=== PATIENT | male | born 1935 | race Caucasian/White ===

== ENCOUNTER 2017-04-03 10:06 | Emergency (ER) | payer MEDICARE, BC ==
[2017-04-03 10:21] VITALS: BP 170/96
[2017-04-03] MEDS ORDERED: DIPHTH,PERTUSS(ACELL),TET VAC 0.5 ML VIAL IM ONE ×2 (10:22→10:31)
--- OUTSIDE RECORDS SUMMARY | 2017-04-03 11:15 | XMS REPORT | Continuity of Care Document ---
:1935 Author Organization [facility] ([facility]) Address [address] [place] [address] Phone [phone] Care Team Providers Name Role Phone Peter Barreto Primary Care Provider [phone] Source Comments This disclosure is being made pursuant to the Care Everywhere program, applicable federal and state laws, and may not contain all informaitonavailable regarding this patient.[facility] ([facility]) Active Allergies and Adverse Reactions No Known Allergies Current Medications Prescription Sig. Disp. Refills Start Date End Date Status nitroglycerin place 0.4 mg Active (NITROSTAT) 0.4 mg SL under the tongue tablet every 5 minutes as needed. folic acid 400 mcg take 1 Tab by Active tablet mouth daily. rabeprazole (ACIPHEX) 20 Take 1 Tab by Active mg EC tablet mouth daily levothyroxine Take 150 mcg by Active (SYNTHROID) 150 mcg mouth every tablet morning before breakfast. METFORMIN 500 mg tablet Take 1,000 mg by 03/31/2014 Active mouth 2 times daily. sildenafil (VIAGRA) 100 Take 100 mg by Active mg tablet mouth as needed. Take 1 hour prior to sexual activity. ergocalciferol (VITAMIN Take 50,000 Active D2) 50,000 unit capsule Units by mouth 2 times weekly ciprofloxacin-dexamethas Instill 3 Drops 7.5 mL 11 08/18/2015 Active one (CIPRODEX) 0.3-0.1 % into both ears 2 otic suspension times daily atenolol 25 mg tablet Take 1 tablet 90 tablet 4 05/03/2016 Active (25 mg total) by mouth daily. enalapril 20 mg tablet Take 1 tablet 90 tablet 4 05/03/2016 Active (20 mg total) by mouth daily. olmesartan (BENICAR) 40 Take 1 tablet 90 tablet 4 05/03/2016 Active mg tablet (40 mg total) by mouth daily. rosuvastatin (CRESTOR) Take 1 tablet 90 tablet 4 05/03/2016 Active 20 mg tablet (20 mg total) by mouth every evening. aspirin 81 mg EC tablet Take 1 tablet 90 tablet 4 05/03/2016 Active (81 mg total) by mouth daily. felodipine 10 mg XR Take 1 tablet 90 tablet 4 01/27/2017 Active tablet (10 mg total) by mouth daily. Active Problems Problem Noted Date Otorrhea of both ears 08/18/2015 Mixed hearing loss, bilateral 08/18/2015 HTN (hypertension) 11/20/2012 Mixed hyperlipidemia 11/20/2012 Other specified acquired hypothyroidism 11/20/2012 CAD (coronary artery disease) 09/21/2009 Other ill-defined heart disease 11/19/2007 Nonspecific (abnormal) findings on radiological and other examination of 11/19 other intrathoracic organs Other chest pain 05/26/2007 Shortness of breath 05/23/2007 Most Recent Encounters Date Type Specialty Providers Description 01/26/2017 Refill [facility] and Vascular Laya Mobley RN Dx: Essential hypertension (Primary Dx) Immunizations Name Dates Previously Given Next Due Influenza, PF 09/22/2009 Social History Tobacco Use Types Packs/Day Years Used Date Never Smoker Smokeless Tobacco: Never Used Alcohol Use Drinks/Week oz/Week Comments Yes 2 Standard drinks or equivalent Last Filed Vital Signs Vital Sign Reading Time Taken Blood Pressure 153/74 05/03/2016 8:15 AM CDT Pulse 74 05/03/2016 8:15 AM CDT Temperature 36.6 C (97.9 F) 09/30/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 Respiratory Rate 20 06/02/2007 8:00 AM CDT Height 1.727 m (5' 8") 04/08/2014 7:58 AM CDT Weight 94.1 kg (207 lb 7.3 oz) 05/03/2016 8:15 AM CDT Body Mass Index 31.55 05/03/2016 8:15 AM CDT Oxygen Saturation 94% 04/08/2014 7:58 AM CDT Plan of Care Date Type Specialty Providers Description 06/20/2017 Appointment Heart and Vascular Clinton Zimmer MD Subj: Appointment [address] [place] [address] [phone] (Fax) Health Maintenance Due Date Last Done Comments Hepatitis B Vaccine (1 of 3 1935 - Primary Series) Tdap Vaccine 1945 Td Vaccine 1952 Colonoscopy 05/21/1984 Zoster Vaccine 1994 Pneumococcal Vaccine (1 of 1999 2 - PCV13) Lipid Disorder Screening 11/20/2017 11/20/2012, 05/29/2007, 05/28/2007 Influenza Vaccine: Seasonal Addressed 08/08/2016 (Completed Overridden with the outside this hospital intention of not or clinic), 07/28/2015 completing the topic (Previously completed), 09/22/2009 Results from Last 3 Months Not on file
--- NOTE | 2017-04-03 11:47 | ERNOTE ---
Animal Bite ER Date of Service: 04/03/17 Presenting Symptoms: bitten Time Seen by Provider: 04/03/17 10:57 Source: patient Exam Limitations: no limitations Immunizations: IMMUNIZATION HX Immunizations Up to Date Yes History of Influenza Vaccine Yes Hx Pneumococcal Vaccination Yes Allergies/Adverse Reactions: Allergies No Known Allergies Allergy (Unverified 03/31/15 13:05) Home Medications: HOME MEDICATIONS Aspirin 325 mg PO DAILY 04/02/15 [Last Taken Unknown] Atenolol [Tenormin] 25 mg PO DAILY 04/02/15 [Last Taken Unknown] Clotrimazole [Lotrimin Cream] 1 appl TP BID 04/02/15 [Last Taken Unknown] Enalapril Maleate [Vasotec] 20 mg PO DAILY 04/02/15 [Last Taken Unknown] Felodipine [Felodipine ER] 10 mg PO DAILY 04/02/15 [Last Taken Unknown] Folic Acid 0.4 mg PO DAILY 04/02/15 [Last Taken Unknown] Levothyroxine Sodium [Unithroid] 150 mcg PO BID 04/02/15 [Last Taken Unknown] Olmesartan Medoxomil [Benicar] 20 mg PO DAILY 04/02/15 [Last Taken Unknown] Rabeprazole Sodium [Aciphex] 20 mg PO BID 04/02/15 [Last Taken Unknown] Rosuvastatin Calcium [Crestor] 20 mg PO DAILY 04/02/15 [Last Taken Unknown] Sildenafil Citrate [Viagra] 100 mg PO DAILY PRN 04/02/15 [Last Taken Unknown] metFORMIN HCL [Glucophage Xr] 500 mg PO DAILY 04/02/15 [Last Taken Unknown] Amox Tr/Potassium Clavulanate [Augmentin 875-125 Tablet] 875 mg PO Q12H #20 tab 04/03/17 [Last Taken Unknown] Narrative: Patient presents to the ED with a bite to his finger from a cat. 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 Right handed. Right 3rd digit. He has his rabies vaccine and I had nursing notify animal control. Right 3rd finger. dT updated. Denies other injuries of N/T/W. 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: Reports: work Animal Type: Reports: cat Animal's Immunization Status: Reports: unknown Observation/Capture: Reports: animal known Context of Attack: Reports: other - vet Severity of injury: Reports: bitten Location of Injury: Reports: upper extremity (R) Associated symptoms: Denies: numbness distally, pain on movement, tingling Prior Treatment: Denies: recently seen Review of Systems - Review of Systems Constitutional: Absent: fever Neurological: Absent: weakness - Patient's Past Medical History Patient History - Medical: Diabetes Type 2, Hypothyroidism Patient History - Cardiac/Respiratory: Hypertension, Hyperlipidemia Patient History - Cancer: No Hx of Cancer Patient History - Surgical Procedures: Cardiac stent Patient History - Other: None - Family History Mother Family History - Medical: Family History - Cardiac/Respiratory: No pertinent hx Father Family History - Medical: Family History - Cardiac/Respiratory: No pertinent hx - Social History Living Situations: spouse Abuse History: No History of abuse Psych History: No pertinent hx Smoking Status: Never smoker Alcohol Use: occasionally Drug Use: none - Immunizations Immunizations Up to Date: Yes Hx Pneumococcal Vaccination: Yes History of Influenza Vaccine: Yes Physical Exam - Physical Exam General Appearance: Present: alert, no apparent distress Respiratory: Present: no respiratory distress Extremity Exam: Present: other - 3.5cm laceration right 3dr finger. no FB seen. no tendon injury noted. Extension strength and flexion appear to be intact. No joint or bone involvement. No FB seen. Gaping. Neurological Exam: Present: other - sensation in fenger intact. Motor appears to be intact. Brisk capillary refill. Skin Exam: Absent: other - laceration as noted. ED Progress - Vital Signs Patient's Vital Signs:: I have reviewed the patient's vital signs. Vital Signs: Vital Signs 04/03/17 10:17 Temperature 36.8 C Pulse Rate 73 Respiratory 22 H Rate Blood Pressure 170/96 O2 Sat by Pulse 96 Oximetry - Progress/Reassessment Chief Complaint: Animal Bite Progress Note-Subjective: 04/03/17 11:44 he wanted the wound colsed. I felt uncomfortable with this as it is a bite and felt delayed secondary closure indicated. He was not agreeable to this. He understands risks and benefits. I discussed the case with Dr Palomo who saw the patient inthe ED and felt I could close it with ABX and he would see the patient in the office in 7 days for a re-check. patient understnds I felt delayed secondary closure best. Procedures Right 3rd Digit Anesthesia: 1% Lidocaine I & D Prep: sterile drapes applied, sterile dressing applied Length of Repair/Wound (cm): 3.5 Wound's Depth/Shape: into subcutaneous Wound Explored: clean, no foreign body Wound Intervention: irrigated w/saline Foreign body identified: other - none Distal NVT: neuro/vasc intact, no tendon injury Suture Size/Type: 4-0, nylon Number of Sutures: 6 Layer Closure: Simple Estimated blood loss (ml): 0 Wound Dressing: sterile dressing applied Complications: Pt estee procedure well Departure Clinical Impression: Animal bite - Departure Disposition: Home self-care Condition: Stable Instructions: Animal Bite Additional Instructions: Rest. Antibiotics. Dr Palomo will see you again in the office April 10 at 9: 30 am. Return immediately if you see any signs of infection, develop fever, numbness, tingling, weakness or if your condition worsens or changes in any way. Prescriptions: Amox Tr/Potassium Clavulanate [Augmentin 875-125 Tablet] 875 mg PO Q12H #20 tab
== END 2017-04-03 11:42 | disposition home or self-care (01) ==
LOC: ER 10:06
PROC: 0JQJ0ZZ Repair Right Hand Subcutaneous Tissue and Fascia, Open Approach (ICD-10-PCS; principal; 2017-04-03)
DX: S61.252A Open bite of right middle finger without damage to nail, initial encounter (principal); W55.01XA Bitten by cat, initial encounter; Y93.89 Activity, other specified; Y92.59 Other trade areas as the place of occurrence of the external cause; Y99.0 Civilian activity done for income or pay; Z23 Encounter for immunization

== ENCOUNTER 2017-09-29 11:08 | Emergency (ER) | payer MEDICARE, BC ==
[2017-09-29 11:20] VITALS: BP 142/82
== END 2017-09-29 11:15 | disposition home or self-care (01) ==
LOC: ER 11:08
DX: Z13.6 Encounter for screening for cardiovascular disorders (principal)